=== PATIENT | male | born 2000 | race Caucasian/White ===

== ENCOUNTER 2018-04-20 18:35 | Emergency (ER) | payer OTHER ==
[~2018-04-20] VITALS: Ht 185.4 cm; Wt 82.8 kg
[2018-04-20 18:44] VITALS: BP 139/93
[2018-04-20 19:46] VITALS: BP 118/61
== END 2018-04-20 19:43 | disposition home or self-care (01) ==
LOC: MED 18:35
DX: S99.921A Unspecified injury of right foot, initial encounter (principal); W22.8XXA Striking against or struck by other objects, initial encounter; Y93.89 Activity, other specified; Y92.89 Other specified places as the place of occurrence of the external cause; Y99.8 Other external cause status
CPT/HCPCS: 73660; 99283; Q0092